=== PATIENT | male | born 1940 | race Caucasian/White ===

== ENCOUNTER 2019-03-27 09:48 | Inpatient (IN) | payer MEDICARE ==
[~2019-03-27] VITALS: Ht 157.5 cm; Wt 59.0 kg
[2019-03-27] VITALS (20 sets, daily range): BP systolic 46–101; BP diastolic 36–60
[2019-03-27] MEDS ORDERED: IV NORMAL SALINE 1000ML BAG 1,000 ML IV SCH (10:01)
--- NOTE | 2019-03-27 10:09 | PHYS DOC ---
Past Medical History Past Medical History: CAD Adult General Chief Complaint Chief Complaint: altered level of consciousness HPI HPI Patient is a 78 year old male patient resident of assisted who presents via EMS with altered level of consciousness and low blood pressure. long-term reported that patient had low blood pressure and they report his blood pressure medication this morning she was not responding and he called 911. EMS reported that patient had blood pressure of 66 and blood sugar of 86 and blood pressure increased to 70s with Trendelenburg position. Patient is not able to talk and give history. Patient's daughter stated that he had a heart attack 3 weeks of A [facility] with ejection fraction of 10 and suffering of increasing chronic dementia because of hypoxia during heart attack with decrease of mental status and sent to a assisted on March 10 but was not able to eat or drink anything and did not have any food or liquid for the last several days. Review of Systems Review of Systems Unable to obtain because of medical condition. Current Medications Current Medications Current Medications Medications (Trade) Dose Ordered Sig/Renard Start Time Stop Time Status Last Admin Dose Admin Albuterol Sulfate (Ventolin Neb Soln) 10 mg 1X ONCE 03/27/19 11:30 03/27/19 11:32 DC 03/27/19 11:47 10 MG Calcium Gluconate (Calcium Gluconate) 1,000 mg 1X ONCE 03/27/19 11:30 03/27/19 11:32 DC 03/27/19 12:48 1,000 MG Dextrose (Dextrose 50%-Water Syringe) 25 gm 1X ONCE 03/27/19 11:30 03/27/19 11:32 DC 03/27/19 12:48 25 GM Insulin Human Regular (HumuLIN R VIAL) 10 unit 1X ONCE 03/27/19 11:30 03/27/19 11:32 DC 03/27/19 12:48 10 UNIT Sodium Bicarbonate (Sodium Bicarb Adult 8.4% Syr) 50 meq 1X ONCE 03/27/19 11:30 03/27/19 11:32 DC 03/27/19 12:48 50 MEQ Sodium Chloride 1,000 ml @ 100 mls/hr Q10H 03/27/19 11:28 03/27/19 17:12 100 MLS/HR Allergies Allergies Allergies Coded Allergies Type Severity Reaction Last Updated Verified No Known Drug Allergies 03/27/19 No Physical Exam Physical Exam Constitutional: Mild response to verbal stimuli, mild distress, non-toxic appearance. [] HENT: Normocephalic, atraumatic. Eyes: PERRLA, EOMI, conjunctiva normal, no discharge. [] Neck: Normal range of motion, no tenderness, supple, no stridor. [] Cardiovascular:Heart rate regular rhythm, no murmur [] Lungs & Thorax: Bilateral breath sounds clear to auscultation [] Abdomen: Bowel sounds normal, soft, no tenderness, no masses, no pulsatile masses. [] Skin: Warm, dry, no erythema, no rash. [] Back: No tenderness, no CVA tenderness. [] Extremities: No tenderness, no cyanosis, no clubbing, ROM intact, no edema. [] Neurologic: Unable to colic, follows the commands Psychologic: Nonverbal, unable to evaluate Current Patient Data Vital Signs Vital Signs Date Time Temp Pulse Resp B/P (MAP) Pulse Ox O2 Delivery O2 Flow Rate FiO2 03/27/19 11:41 72 18 100 03/27/19 09:50 98.4 86/48 (61) Room Air 98.4 Lab Values Laboratory Tests Test 03/27/19 10:00 03/27/19 10:47 03/27/19 11:25 Glucose (Fingerstick) 77 mg/dL (70-99) White Blood Count 15.1 x10^3/uL (4.0-11.0) H Red Blood Count 4.20 x10^6/uL (4.30-5.70) L Hemoglobin 13.1 g/dL (13.0-17.5) Hematocrit 40.1 % (39.0-53.0) Mean Corpuscular Volume 96 fL (79-100) Mean Corpuscular Hemoglobin 31 pg (25-35) Mean Corpuscular Hemoglobin Concent 33 g/dL (31-37) Red Cell Distribution Width 17.0 % (11.5-14.5) H Platelet Count 179 x10^3/uL (140-400) Neutrophils (%) (Auto) 91 % (31-73) H Lymphocytes (%) (Auto) 2 % (24-48) L Monocytes (%) (Auto) 7 % (0-9) Eosinophils (%) (Auto) 0 % (0-3) Basophils (%) (Auto) 0 % (0-3) Neutrophils # (Auto) 13.8 x10^3/uL (1.8-7.7) H Lymphocytes # (Auto) 0.2 x10^3/uL (1.0-4.8) L Monocytes # (Auto) 1.1 x10^3/uL (0.0-1.1) Eosinophils # (Auto) 0.0 x10^3/uL (0.0-0.7) Basophils # (Auto) 0.0 x10^3/uL (0.0-0.2) Segmented Neutrophils % 85 % (35-66) H Band Neutrophils % 6 % (0-9) Lymphocytes % 1 % (24-48) L Monocytes % 8 % (0-10) Platelet Estimate Adequate (ADEQUATE) Large Platelets Few Anisocytosis Slight [place] Cells Present Crenated Cell Present Acanthocytes (Spur Cells) Few Sodium Level 141 mmol/L (136-145) Potassium Level 6.3 mmol/L (3.5-5.1) *H Chloride Level 108 mmol/L (98-107) H Carbon Dioxide Level 19 mmol/L (21-32) L Anion Gap 14 (6-14) Blood Urea Nitrogen 79 mg/dL (8-26) H Creatinine 2.3 mg/dL (0.7-1.3) H Estimated GFR (Cockcroft-Gault) 27.6 BUN/Creatinine Ratio 34 (6-20) H Glucose Level 86 mg/dL (70-99) Calcium Level 8.9 mg/dL (8.5-10.1) Magnesium Level 2.8 mg/dL (1.8-2.4) H Total Bilirubin 2.8 mg/dL (0.2-1.0) H Aspartate Amino Transferase (AST) 41 U/L (15-37) H Alanine Aminotransferase (ALT) 133 U/L (16-63) H Alkaline Phosphatase 152 U/L (46-116) H Total Protein 6.4 g/dL (6.4-8.2) Albumin 2.8 g/dL (3.4-5.0) L Albumin/Globulin Ratio 0.8 (1.0-1.7) L Lipase 86 U/L (73-393) Prothrombin Time 15.7 SEC (11.7-14.0) H Prothrombin Time INR 1.3 (0.8-1.1) H Activated Partial Thromboplast Time 31 SEC (24-38) Lactic Acid Level 1.5 mmol/L (0.4-2.0) Creatine Kinase 178 U/L (39-308) Creatine Kinase MB (Mass) 5.1 ng/mL (0.0-3.6) H Creatine Kinase MB Relative Index 2.9 % (0-4) Troponin I Quantitative 1.667 ng/mL (0.000-0.055) WR-Koy-Y-Type Natriuretic Peptide 37278 pg/mL (0-449) H Laboratory Tests 03/27/19 10:47 Laboratory Tests 03/27/19 10:47 EKG EKG EKG interpreted by me. EKG at 0 957 showed normal sinus rhythm at rate of 69, WPW pattern, abnormal left axis deviation, no acute ST and T-wave elevation Radiology/Procedures Radiology/Procedures [][address] [id number] IMAGING REPORT Signed PATIENT: DELMER MATT ACCOUNT: [id number] : 1940 LOCATION: ER AGE: 78 SEX: M EXAM STATUS: REG ER ORD. PHYSICIAN: KELLY MARIA MD REASON: altered level of consciousness, hypotension PROCEDURE: PORTABLE CHEST 1V PORTABLE CHEST 1V INDICATION: Altered mental status, hypotension. COMPARISON STUDY: 03/10/2007. FINDINGS: Left pectoral transvenous dual-chamber biventricular ICD/pacemaker. Lungs: Normal lung volume. No consolidation. Pleura: No pleural effusion or pneumothorax. Heart and Mediastinum: Cardiomegaly. Tortuous atherosclerotic aorta. CABG. IMPRESSION: No consolidation. Electronically signed by: Brendon To MD (03/27/2019 10:50 AM) [facility] DICTATED and SIGNED BY: BRENDON TO MD DATE: 03/27/[address] [id number] IMAGING REPORT Signed PATIENT: DELMER MATT ACCOUNT: [id number] : 1940 LOCATION: ER AGE: 78 SEX: M EXAM STATUS: REG ER ORD. PHYSICIAN: KELLY MARIA MD REASON: altered level of consciousness, hypotension PROCEDURE: CT HEAD WO CONTRAST PQRS Compliance Statement: One or more of the following individualized dose reduction techniques were utilized for this examination: 1. Automated exposure control 2. Adjustment of the mA and/or kV according to patient size 3. Use of iterative reconstruction technique CT HEAD WITHOUT CONTRAST History: Altered level of consciousness, hypotension. Comparison: None. Technique: Axial images are obtained of the head from the skull base through the vertex without IV contrast. Findings: No mass-effect, midline shift, extra-axial fluid collection, hemorrhage, or obvious acute infarction is identified. Basilar cisterns are patent. The ventricles and sulci are prominent, consistent with age-related cerebral atrophy. There is supratentorial white matter hypoattenuation. This is a nonspecific finding but is commonly due to chronic small vessel ischemic disease. Bone windows demonstrate no acute calvarial abnormality. The visualized paranasal sinuses are clear. Mastoid air cells are well aerated. IMPRESSION: 1. No acute intracranial abnormality. 2. Age-related cerebral atrophy and mild supratentorial white matter changes probably due to chronic small vessel ischemic disease. Electronically signed by: Nitin Garcia MD (03/27/2019 10:42 AM) [id number] DICTATED and SIGNED BY: NITIN GARCIA MD DATE: 03/27/19 1042 Course & Med Decision Making Course & Med Decision Making Pertinent Labs and Imaging studies reviewed. (See chart for details) Evaluation of patient in ER showed 78-year-old male patient with history of percent and I and decrease of mental status was sent from assisted and was not able to eat and drink and had hypotension several days and altered level of consciousness today. Patient was not febrile at arrival to ER with blood pressure of 84 and treated with IV fluids with increase of blood pressure and improvement of mental condition. Patient had elevation of BUN/creatinine and potassium and treated for hypokalemia.Patient requiring admission for further evaluation and treatment. Discussed with Dr. Wise who is in agreement with admission. Discussed findings and plan with patient and family, who acknowledge understanding and agreement. Accepting physician recommended to consult pet sitting and district manager in training. Dr. Gleason on-call pet sitting was consulted at 8 and district manager in training was consulted at 1420. Dragon Disclaimer Dragon Disclaimer This electronic medical record was generated, in whole or in part, using a voice recognition dictation system. Departure Departure Impression: Primary Impression: Altered level of consciousness Additional Impressions: Dehydration Acute renal failure Hyperkalemia Hypermagnesemia Elevated troponin I level Elevated liver function tests Disposition: ADMITTED INPATIENT (at 1246) Admitting Physician: Maryana Wise (accepted admission at 1245) Condition: GUARDED Critical Care Time Critical care time was 90 minutes exclusive of procedures. Problem Qualifiers Additional Impressions: Acute renal failure Acute renal failure type: unspecified Qualified Codes: N17.9 - Acute kidney failure, unspecified KELLY MARIA MD Mar 27, 2019 10:09
--- NOTE | 2019-03-27 10:44 | RAD ---
PQRS Compliance Statement: One or more of the following individualized dose reduction techniques were utilized for this examination: 1. Automated exposure control 2. Adjustment of the mA and/or kV according to patient size 3. Use of iterative reconstruction technique CT HEAD WITHOUT CONTRAST History: Altered level of consciousness, hypotension. Comparison: None. Technique: Axial images are obtained of the head from the skull base through the vertex without IV contrast. Findings: No mass-effect, midline shift, extra-axial fluid collection, hemorrhage, or obvious acute infarction is identified. Basilar cisterns are patent. The ventricles and sulci are prominent, consistent with age-related cerebral atrophy. There is supratentorial white matter hypoattenuation. This is a nonspecific finding but is commonly due to chronic small vessel ischemic disease. Bone windows demonstrate no acute calvarial abnormality. The visualized paranasal sinuses are clear. Mastoid air cells are well aerated. IMPRESSION: 1. No acute intracranial abnormality. 2. Age-related cerebral atrophy and mild supratentorial white matter changes probably due to chronic small vessel ischemic disease. Electronically signed by: Nitin Garcia MD (03/27/2019 10:42 AM) [id number]
--- NOTE | 2019-03-27 10:53 | RAD ---
PORTABLE CHEST 1V INDICATION: Altered mental status, hypotension. COMPARISON STUDY: 03/10/2007. FINDINGS: Left pectoral transvenous dual-chamber biventricular ICD/pacemaker. Lungs: Normal lung volume. No consolidation. Pleura: No pleural effusion or pneumothorax. Heart and Mediastinum: Cardiomegaly. Tortuous atherosclerotic aorta. CABG. IMPRESSION: No consolidation. Electronically signed by: Bakari To MD (03/27/2019 10:50 AM) [facility]
[2019-03-27 11:07] LABS: ALBUMIN 2.8 g/dL (3.4-5.0); ALBUMIN/GLOBULIN RATIO 0.8 (1.0-1.7); CALCIUM 8.9 mg/dL (8.5-10.1); CREATININE 2.3 mg/dL (0.7-1.3); GFR 27.6; MAGNESIUM 2.8 mg/dL (1.8-2.4); TOTAL BILIRUBIN 2.8 mg/dL (0.2-1.0); TOTAL PROTEIN 6.4 g/dL (6.4-8.2)
[2019-03-27 11:08] LABS: BASO % 0 % (0-3); EOS % 0 % (0-3); HEMATOCRIT 40.1 % (39.0-53.0); HEMOGLOBIN 13.1 g/dL (13.0-17.5); LYMPH # 0.2 x10^3/uL (1.0-4.8); LYMPH % 2 % (24-48); MEAN CORPUSCULAR HEMOGLOBIN 31 pg (25-35); MEAN CORPUSCULAR HGB CONC 33 g/dL (31-37); MEAN CORPUSCULAR VOLUME 96 fL (79-100); MONO # 1.1 x10^3/uL (0.0-1.1); MONO % 7 % (0-9); NEUT # 13.8 x10^3/uL (1.8-7.7); NEUT % 91 % (31-73); PLATELET COUNT 179 x10^3/uL (140-400); WHITE BLOOD COUNT 15.1 x10^3/uL (4.0-11.0)
[2019-03-27 11:14] LABS: POTASSIUM 6.3 mmol/L (3.5-5.1)
[2019-03-27] MEDS ORDERED: CALCIUM GLUCONATE 1,000 MG/10 ML VIAL. IVP ONE (11:30)
[2019-03-27] MEDS ORDERED: DEXTROSE 50% 25 GM / 50ML DISP.SYRIN. IV ONE (11:30)
[2019-03-27] MEDS ORDERED: INSULIN REGULAR 100 UNIT/ML 3ML VIAL. IV ONE (11:30)
[2019-03-27] MEDS ORDERED: SODIUM BICARB ADULT 8.4% 50 MEQ/50 ML DISP.SYRIN. IV ONE (11:30)
[2019-03-27] MEDS ORDERED: ALBUTEROL SULFATE 2.5 MG/3 ML NEBU. CONT NEB ONE (11:30)
[2019-03-27 12:12] LABS: BILIRUBIN,URINE SMALL (NEG); CLARITY,URINE CLEAR; COLOR,URINE AMBER; NITRITE,URINE NEGATIVE (NEG); PROTEIN,URINE NEGATIVE (NEG-TRACE)
[2019-03-27 12:13] LABS: PROTHROMBIN TIME PATIENT 15.7 SEC (11.7-14.0)
[2019-03-27 12:29] LABS: HYALINE CASTS, URINE MANY /HPF; SQUAMOUS EPITHELIAL CELL,UR FEW /LPF
[2019-03-27 12:30] LABS: AMORPHOUS SEDIMENT,UR PRESENT /HPF; BACTERIA,URINE 0 /HPF (0-FEW); WBC,URINE 0 /HPF (0-4)
[2019-03-27] MEDS: IV NORMAL SALINE 1000ML BAG 1,000 ML IV SCH ×2 (12:48→17:12)
[2019-03-27] MEDS ORDERED: IV NORMAL SALINE 1000ML BAG 1,000 ML IV ONE (13:00)
[2019-03-27 13:08] LABS: % BANDS 6 % (0-9); % LYMPHS 1 % (24-48); % MONOS 8 % (0-10); % SEGS 85 % (35-66)
[2019-03-27 13:09] LABS: ANISOCYTOSIS SLIGHT; PLT ESTIMATE ADEQUATE (ADEQUATE)
[2019-03-27 13:10] LABS: ACANTHOCYTES FEW
[2019-03-27 13:11] LABS: BURR CELLS PRESENT
--- NOTE | 2019-03-27 14:16 | EKG ---
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
[2019-03-27] MEDS: NOREPINEPHRIN 8MG/250ML PREMIX 250 ML IV PRN ×3 (14:57→22:00)
--- NOTE | 2019-03-27 15:18 | PDOC2 ---
LORI ZAMORA PORTFOLIO ADMINISTRATOR 03/27/19 1518: CARDIAC CONSULT DATE OF CONSULT Date of Consult DATE: 03/27/19 TIME: 15:14 REASON FOR CONSULT Reason for Consult: Elevated troponin [place] weeks ago REFERRING PHYSICIAN Referring Physician: Dr. Dueñas SOURCE Source: Chart review, Patient HISTORY OF PRESENT ILLNESS HISTORY OF PRESENT ILLNESS This is a 78 yo male, with a history of CAD s/p CABG in the 80's and multiple stents thereafter, ICM s/p AICD, hyperlipidemia, hypertension, and PAD, who presented from [facility] secondary to altered mental status and low blood pressure. Presented to 03/05/19 as STEMI. Underwent cardiac cath with PCI/stent of SVG to LAD. PCI of the RCA was unsuccessful. Was discharged to [facility] for rehab. Follows with Dr. Rizzo. Daughter reports increased confusion and LE edema since [place] 3 weeks ago. No recent chest pain, palpitations, dizziness, diaphoresis, or nausea/vomiting. Daughter reports poor care at [facility]. Were working on transferring him to another facility. PAST MEDICAL HISTORY Cardiovascular: CAD, CHF, HTN, Hyperlipidemia, Other (PAD) CENTRAL NERVOUS SYSTEM: Dementia PAST SURGICAL HISTORY Past Surgical History: Pacemaker (AICD ), CABG (CABG with SVG to LAD, SVG to CFX, SVG to RCA in 1988 ) FAMILY HISTORY Family History: Heart Disease, Hypertension SOCIAL HISTORY Smoke: Quit (3 weeks ago) ALCOHOL: none Drugs: None Lives: with Family CURRENT MEDICATIONS CURRENT MEDICATIONS Current Medications Medications (Trade) Dose Ordered Sig/Renard Route PRN Reason Start Time Stop Time Status Last Admin Dose Admin Sodium Chloride 1,000 ml @ 1,000 mls/hr Q1H IV 03/27/19 10:01 03/27/19 11:00 DC 03/27/19 10:51 Calcium Gluconate (Calcium Gluconate) 1,000 mg 1X ONCE IVP 03/27/19 11:30 03/27/19 11:32 DC 03/27/19 12:48 Sodium Bicarbonate (Sodium Bicarb Adult 8.4% Syr) 50 meq 1X ONCE IV 03/27/19 11:30 03/27/19 11:32 DC 03/27/19 12:48 Dextrose (Dextrose 50%-Water Syringe) 25 gm 1X ONCE IV 03/27/19 11:30 03/27/19 11:32 DC 03/27/19 12:48 Insulin Human Regular (HumuLIN R VIAL) 10 unit 1X ONCE IV 03/27/19 11:30 03/27/19 11:32 DC 03/27/19 12:48 Sodium Chloride 1,000 ml @ 100 mls/hr Q10H IV 03/27/19 11:28 03/27/19 12:48 Albuterol Sulfate (Ventolin Neb Soln) 10 mg 1X ONCE CONT NEB 03/27/19 11:30 03/27/19 11:32 DC 03/27/19 11:47 Norepinephrine Bitartrate 250 ml @ 11.907 mls/ hr CONT PRN IV SEE I/O RECORD 03/27/19 14:45 03/27/19 14:57 ALLERGIES ALLERGIES: Coded Allergies: No Known Drug Allergies (Unverified , 03/27/19) ROS Review of System 14 point ROS conducted with pertinent positives noted above in HPI PHYSICAL EXAM General: Other (drowsy) HEENT: Atraumatic Lungs: Other (rhonchi bilateral upper ) Heart: Regular rate, Normal S1, Normal S2, Other (distant heart tones ) Abdomen: Soft Extremities: Other (2+ bilateral LE edema, DP pulses dopplered bilaterally ) Skin: No significant lesion Neuro: Other Psych/Mental Status: Other (rowsy ) VITALS/I&O VITALS/I&O: Vital Signs Date Time Temp Pulse Resp B/P (MAP) Pulse Ox O2 Delivery O2 Flow Rate FiO2 03/27/19 13:26 98 20 100 03/27/19 11:55 Nasal Cannula 4.0 03/27/19 09:50 98.4 86/48 (61) 98.4 LABS Lab: Laboratory Tests Test 03/27/19 10:00 03/27/19 10:47 03/27/19 11:25 03/27/19 11:54 Glucose (Fingerstick) 77 mg/dL (70-99) White Blood Count 15.1 x10^3/uL (4.0-11.0) H Red Blood Count 4.20 x10^6/uL (4.30-5.70) L Hemoglobin 13.1 g/dL (13.0-17.5) Hematocrit 40.1 % (39.0-53.0) Mean Corpuscular Volume 96 fL (79-100) Mean Corpuscular Hemoglobin 31 pg (25-35) Mean Corpuscular Hemoglobin Concent 33 g/dL (31-37) Red Cell Distribution Width 17.0 % (11.5-14.5) H Platelet Count 179 x10^3/uL (140-400) Neutrophils (%) (Auto) 91 % (31-73) H Lymphocytes (%) (Auto) 2 % (24-48) L Monocytes (%) (Auto) 7 % (0-9) Eosinophils (%) (Auto) 0 % (0-3) Basophils (%) (Auto) 0 % (0-3) Neutrophils # (Auto) 13.8 x10^3/uL (1.8-7.7) H Lymphocytes # (Auto) 0.2 x10^3/uL (1.0-4.8) L Monocytes # (Auto) 1.1 x10^3/uL (0.0-1.1) Eosinophils # (Auto) 0.0 x10^3/uL (0.0-0.7) Basophils # (Auto) 0.0 x10^3/uL (0.0-0.2) Segmented Neutrophils % 85 % (35-66) H Band Neutrophils % 6 % (0-9) Lymphocytes % 1 % (24-48) L Monocytes % 8 % (0-10) Platelet Estimate Adequate (ADEQUATE) Large Platelets Few Anisocytosis Slight [place] Cells Present Crenated Cell Present Acanthocytes (Spur Cells) Few Sodium Level 141 mmol/L (136-145) Potassium Level 6.3 mmol/L (3.5-5.1) *H Chloride Level 108 mmol/L (98-107) H Carbon Dioxide Level 19 mmol/L (21-32) L Anion Gap 14 (6-14) Blood Urea Nitrogen 79 mg/dL (8-26) H Creatinine 2.3 mg/dL (0.7-1.3) H Estimated GFR (Cockcroft-Gault) 27.6 BUN/Creatinine Ratio 34 (6-20) H Glucose Level 86 mg/dL (70-99) Calcium Level 8.9 mg/dL (8.5-10.1) Magnesium Level 2.8 mg/dL (1.8-2.4) H Total Bilirubin 2.8 mg/dL (0.2-1.0) H Aspartate Amino Transferase (AST) 41 U/L (15-37) H Alanine Aminotransferase (ALT) 133 U/L (16-63) H Alkaline Phosphatase 152 U/L (46-116) H Total Protein 6.4 g/dL (6.4-8.2) Albumin 2.8 g/dL (3.4-5.0) L Albumin/Globulin Ratio 0.8 (1.0-1.7) L Lipase 86 U/L (73-393) Prothrombin Time 15.7 SEC (11.7-14.0) H Prothrombin Time INR 1.3 (0.8-1.1) H Activated Partial Thromboplast Time 31 SEC (24-38) Lactic Acid Level 1.5 mmol/L (0.4-2.0) Creatine Kinase 178 U/L (39-308) Creatine Kinase MB (Mass) 5.1 ng/mL (0.0-3.6) H Creatine Kinase MB Relative Index 2.9 % (0-4) Troponin I Quantitative 1.667 ng/mL (0.000-0.055) HU-Tpn-[id number]-Type Natriuretic Peptide 28436 pg/mL (0-449) H Urine Collection Type Unknown Urine Color Christie Urine Clarity Clear Urine pH 5.0 Urine Specific Guin 1.020 Urine Protein Negative mg/dL (NEG-TRACE) Urine Glucose (UA) Negative mg/dL (NEG) Urine Ketones (Stick) Negative mg/dL (NEG) Urine Blood Negative (NEG) Urine Nitrite Negative (NEG) Urine Bilirubin Small (NEG) Urine Urobilinogen Dipstick 1.0 mg/dL (0.2 mg/dL) Urine Leukocyte Esterase Negative (NEG) Urine RBC 1-2 /HPF (0-2) Urine WBC 0 /HPF (0-4) Urine Squamous Epithelial Cells Few /LPF Urine Amorphous Sediment Present /HPF Urine Bacteria 0 /HPF (0-FEW) Urine Hyaline Casts Many /HPF Urine Mucus Marked /LPF Laboratory Tests 03/27/19 10:47 Laboratory Tests 03/27/19 10:47 ECHOCARDIOGRAM ECHOCARDIOGRAM 03/06/19 at Severely impaired left ventricular systolic function with an EF of 20%. The end-diastolic dimension was not enlarged, however the LV end-diastolic volume index was abnormal at 114 mL/m2. There are multiple areas of akinesis, the apex is dyskinetic. Moderate diastolic dysfunction. Elevated left atrial pressure. The RV is normal in size, function is mildly impaired. Right-sided pacer leads are noted. Mitral annular calcification with nonspecific mitral valve thickening. Moderate MR. Mild TR. Aortic valve sclerosis without stenosis. Peak PAP of 61 mmHg. Normal aortic root size. No pericardial effusion. The EF is less dynamic on the current study, the mitral valve regurgitation is more prominent on the current study. HEART CATH HEART CATH FINDINGS OF DIAGNOSTIC CORONARY ANGIOGRAPHY: Left main coronary artery: The left main coronary artery is a medium-sized ve ssel with diffuse moderate plaque disease of about 30%. Left anterior descending artery: The LAD is a medium-sized vessel that has mild disease proximally and gives rise to a large diagonal branch that is angiographically without significant stenosis. The LAD is occluded after the origin of the diagonal branch. There are [id number] collateralization of a couple of smaller distal territories of the obtuse marginal branch. Circumflex artery: This is completely occluded at its origin. Right coronary artery: This is completely occluded in its proximal portion. Saphenous vein graft to the RCA: This is completely occluded at its origin with only a small stump being seen. SVG to LAD: This graft has severe degenerative atherothrombotic disease from its ostium to the proximal portion causing at least 80%-90% stenosis. Beyond that, there is a poststenotic dilatation and the graft is relatively preserved. The graft connects to a [id number] LAD but the LAD does not fill beyond the anastomosis. However, the retrograde portion of the LAD does fill that supplies several septal branches. There appeared to be no significant collaterals going to the RCA territory either from this graft. SVG to obtuse marginal: This is known occluded from before with an occluded stent and was not imaged in this study. LV HEMODYNAMICS: LV systolic pressure was measured at 98 mmHg and end-diastolic pressure was elevated at about 22 mmHg. There was no pullback gradient across the aortic valve. IMPRESSION: Successful angioplasty of 80%-90% degenerated saphenous vein graft to the LAD successfully with one drug-eluting juliana stent, though the distal LAD beyond the graft anastomosis is occluded and the graft just supplies the retrograde portion of the LAD via septals. Unsuccessful attempt at opening the occluded saphenous vein graft to the RCA, that it appeared to be a more chronic process A known occlusion of the SVG to the OM. Patent first diagonal. Elevated LVEDP. RECOMMENDATIONS: We do not believe that the RCA is an acute lesion the way it behaved with the wire. I do believe the culprit is likely the saphenous vein graft to the LAD that we fixed today. The patient's prognosis is extremely concerning as really apart from the saphenous vein graft to the diagonal occluded distal to the graft, the patient still does not really have very good blood supply to the heart except for the diagonal branch. In fact, we did not see much collateral filling of the circ or the PDA territory. Dual antiplatelet therapy is recommended for at least 1 year and further management per the CICU team. Tonio Valenzuela MD KG/MedQ //[id number] p ASSESSMENT/PLAN ASSESSMENT/PLAN 1. Metabolic encephalopathy 2. Hypotension 3. Elevated troponin; peal 1.667. Possibly type II, demand ischemia 4. CAD s/p CABG and multiple stents. Most recent 03/06/19 s/p PCI/stent of SVG to LAD. DAPT with ASA and Brilinta 5. ICM; s/p AICD. LVEF 20% per echo at 03/06/19. Was 50% in 2017. 6. Acute on chronic systolic HF 7. FREDRICK with hyperkalemia; nephrology consulted 8. Elevated liver enzymes 9. H/o ventricular arrhythmia; noted at [facility]. Amiodarone was initiated. Recommendations Caution fluids with CMP Start inotropic support with midodrine Trend troponin Limited echo Pressor support as warranted Secondary prevention as able including ASA/Brilinta Hold antiHTN therapy, spironolactone Resume Amiodarone ROBERTO CARRERA MD 03/27/192025: CARDIAC CONSULT ASSESSMENT/PLAN ASSESSMENT/PLAN Patient seen and examined. Agree with FELT DYEING MACHINE TENDER's assessment and plan. Patient with h/o CAD s/p CABG, multiple PCI's thereafter more recently to SVG to LAD is admitted with acute on chr renal insuff NSTEMI probably type 2/demand ischemia EF 20% s/p AICD implantation, appears decompensated Start milrinone infusion for inotropic support Continue amiodarone for VT suppression Guarded prognosis Thank you for your consultation LORI ZAMORA APRN Mar 27, 2019 15:18 ROBERTO CARRERA MD Mar 27, 2019 20:26
[2019-03-27] MEDS ORDERED: MILRINONE 20MG/100ML PREMIX 100 ML IV PRN (15:30)
[2019-03-27] MEDS ORDERED: ALBU2.5V14 NEB (16:12)
[2019-03-27] MEDS ORDERED: ALPR1TAB6 PO (16:19)
[2019-03-27] MEDS ORDERED: AMIO200T4 PO (16:19)
[2019-03-27 16:20] LABS: BASE EXCESS ABG -8 mmol/L (-3-3); HCO3 ABG 16 mmol/L (21-28); PCO2 ABG 28 mmHg (35-46); PO2 ABG 86 mmHg (65-108); SAT O2 ABG 96 % (92-99)
[2019-03-27 16:24] LABS: FIO2 ABG 21
[2019-03-27] MEDS ORDERED: TICA90TA PO (16:29)
[2019-03-27] MEDS ORDERED: METO50TA4 PO (16:29)
[2019-03-27] MEDS ORDERED: SPIR25TA5 PO (16:29)
[2019-03-27] MEDS ORDERED: NICO1PAT25 TP (16:29)
[2019-03-27] MEDS ORDERED: OXYC1TAB22 PO (16:29)
[2019-03-27] MEDS ORDERED: ATOR40TA59 PO (16:29)
[2019-03-27] MEDS ORDERED: [UNRECOGNIZED DRUG - CODE] PO (16:29)
[2019-03-27] MEDS ORDERED: MELA3TAB2 PO (16:29)
[2019-03-27] MEDS ORDERED: NITR0.4T22 SL (16:29)
[2019-03-27] MEDS ORDERED: ASPI-630 PO (16:29)
[2019-03-27] MEDS: ALBUTEROL SULFATE 2.5 MG/3 ML NEBU. NEB SCH ×2 (16:29→23:08)
[2019-03-27] MEDS ORDERED: DOCU100C28 PO (16:29)
[2019-03-27] MEDS ORDERED: POLY2500 PO (16:29)
[2019-03-27] MEDS ORDERED: LOSA-73 PO (16:29)
[2019-03-27] MEDS ORDERED: AMIODARONE HCL 200 MG TABLET. PO ONE (17:15)
[2019-03-27] MEDS ORDERED: NON FORMULARY ITEM (Albuterol Sulfate (Albuterol Sulfate Conc Neb Soln) 1 VIAL) NEB SCH (18:00)
[2019-03-27] MEDS ORDERED: SODIUM BICARBONATE VIAL 100 MEQ in IV DEXTROSE 5% 1,000 ML IV SCH (19:30)
[2019-03-27] MEDS ORDERED: TICAGRELOR 90 MG TABLET. PO SCH (21:00)
[2019-03-27] MEDS ORDERED: ATORVASTATIN CALCIUM 40 MG TABLET. PO SCH (21:00)
--- NOTE | 2019-03-27 22:41 | NUR ---
patient has had 35cc of urine output so far this shift. Dr. Gleason notified of low urine output and updated on patient's condition. New orders received. Will implement.
[2019-03-27] MEDS ORDERED: IV NORMAL SALINE 500ML BAG 500 ML IV ONE (23:00)
--- NOTE | 2019-03-27 23:35 | NUR ---
SBP 40-50s per cuff. Levo gtt maxed out. Dr. Galindo notified at 2335 and new order received. Will implement and continue to monitor.
[2019-03-28 00:30] VITALS: BP 56/40
[2019-03-28 01:00] VITALS: BP 77/37
[2019-03-28] MEDS: NOREPINEPHRIN 8MG/250ML PREMIX 250 ML IV PRN (01:05)
--- NOTE | 2019-03-28 02:48 | NUR ---
0130-Patient having increased WOB. Respiratory rate upper 30s and 02 sat at 94-97%. Lungs sounds course/crackles. Discussed with daughter Radha about possible need for intubation. She stated that "I do not think he would want that." ABG ordered. 0140-Patient breathing became irregular and slow, daughter at bedside calling other family members. 100% NRB placed on patient. 0150-patient's heart rate dropped to 60s from the 110s. Agonal breathing noted. Daughter at bedside. 0158-Patient monitor saying HR at zero. Patient did not have a heart beat or spontaneous breathing, this finding was verified by 2 RNs, see form. Dr. Greg faith. Family at bedside. 0243-Dr. Wise notified of patient's .
[2019-03-28] MEDS ORDERED: ASPIRIN CHEWABLE 81 MG TABLET. PO SCH (09:00)
[2019-03-28] MEDS ORDERED: AMIODARONE HCL 200 MG TABLET. PO SCH (09:00)
--- NOTE | 2019-03-28 10:02 | PDOC ---
Provider Note Provider Note Hospital course dictated.#[id number]. RACH NICOLAS MD Mar 28, 2019 10:02
--- NOTE | 2019-03-28 10:14 | HP ---
ADMIT DATE: 03/28/2019 HISTORY AND PHYSICAL AND SUMMARY The patient on 03/28/2019 mail room. REASON FOR ADMISSION TO THE HOSPITAL: Acute renal failure, hypertension, and mental status changes. CONSULTATION: Cardiology, Shay Galindo MD HOSPITAL COURSE: The patient is a 78-year-old male patient has a transfer from [facility] because he was dehydrated, was mental status changes and hypertension and the patient apparently was at recently. At that time, he had a STEMI. The patient had a cardiac cath and had some stents placed. The patient has history of previous coronary artery disease, had a bypass surgery 8 years, multiple stents, has ischemic cardiomyopathy, ejection fraction 20%, AICD, hypertension, hyperlipidemia, and peripheral vascular disease. The patient from [facility] was at [facility] for 10 days and has been declining, was brought to [facility] and patient had kidney failure with BUN 80, creatinine 2.5, hypertension, had mental status changes. CT head was negative, was given cautious hydration, seen by Cardiology and his potassium was high at 6.4. The patient also was consulted with renal. The patient was admitted to the ICU, seen by Cardiology and his prognosis was poor and the patient's family made him a DNR and the patient in spite of being on pressors and IV fluids, the patient in the mail room on 03/28/2019. FINAL DIAGNOSES: 1. Acute renal insufficiency. 2. Metabolic encephalopathy. 3. Recent myocardial infarction. 4. Coronary artery disease, history of bypass surgery and multiple stents including recently. 5. Ischemic cardiomyopathy, ejection fraction 20%. The patient has automatic implantable cardioverter defibrillator. 6. Hypertension. 7. Hyperlipidemia. 8. Congestive heart failure. The patient from natural causes. RACH NICOLAS MD DR: JOSEPH/austin JOB#: [id number] / [id number] SHAWNA Shane
== END 2019-03-28 04:51 | disposition expired | DRG 682 ==
LOC: ER 09:48 → EDBD 09:48 → 1 WEST ICU 11:48
PROVIDERS: ADMIT Internal Medicine; ATTEND Internal Medicine
DX: N17.9 Acute kidney failure, unspecified (principal); G93.41 Metabolic encephalopathy; I50.23 Acute on chronic systolic (congestive) heart failure; I21.A1 Myocardial infarction type 2; E78.5 Hyperlipidemia, unspecified; E83.41 Hypermagnesemia; E86.0 Dehydration; E87.5 Hyperkalemia; F03.90 Unspecified dementia, unspecified severity, without behavioral disturbance, psychotic disturbance, mood disturbance, and anxiety; I11.0 Hypertensive heart disease with heart failure; I25.10 Atherosclerotic heart disease of native coronary artery without angina pectoris; I25.5 Ischemic cardiomyopathy; I25.2 Old myocardial infarction; I73.9 Peripheral vascular disease, unspecified; Z66 Do not resuscitate; Z82.49 Family history of ischemic heart disease and other diseases of the circulatory system; Z95.5 Presence of coronary angioplasty implant and graft; Z95.810 Presence of automatic (implantable) cardiac defibrillator; Z95.1 Presence of aortocoronary bypass graft
CPT/HCPCS: 36415; 70450; 71045; 80053; 81001; 82553; 82805; 82962; 83605; 83690; 83735; 83880; 84132; 84484; 85007; 85025; 85610; 85730; 87040; 87641; 93005; 94640; J0171; J0610; J1815; J2260; J7030; J7040; J7042; J7050; J7613; G0378